=== PATIENT | female | born 1945 | race African-American/Black ===

== ENCOUNTER 2020-05-31 13:01 | Inpatient (IN) ==
[2020-05-31] MEDS ORDERED: hydrALAZINE 20 MG/1 ML VIAL IV PRN (15:06)
[2020-05-31] MEDS ORDERED: DEXTROSE 50% 25 GM/50 ML VIAL IV PRN (15:06)
[2020-05-31] MEDS ORDERED: ACETAMINOPHEN 325 MG TABLET PO PRN (15:06)
[2020-05-31] MEDS ORDERED: ONDANSETRON 4 MG/2 ML VIAL IV PRN (15:06)
[2020-05-31] MEDS ORDERED: GLUCAGON 1 MG VIAL IM PRN (15:06)
[2020-05-31] MEDS ORDERED: SODIUM CHLORIDE 0.9% 1,000 ML IV SCH (15:30)
[2020-05-31] MEDS: INSULIN LISPRO 100 UNIT/ML SUBCUT SCH ×2 (16:27→22:09)
[2020-05-31] MEDS: ENOXAPARIN 30 MG/0.3 ML SYRINGE SUBCUT SCH (16:48)
[2020-05-31] MEDS: INSULIN NPH/REGULAR 70/30 100 UNIT/ML SUBCUT SCH (16:49)
[2020-05-31] MEDS: ALBUMIN 25% 12.5 GM/50 ML VIAL IV SCH (17:39)
[2020-05-31] MEDS: cefTRIAXone 1,000 MG in SODIUM CHLORIDE 0.9% 100 ML IV SCH (22:06)
[2020-05-31 22:16] LABS: Basophils % 0.3 % (0.0-0.8); Eosinophils # 0.2 10*3/uL (0.0-0.87); Eosinophils % 2.1 % (0.00-10.9); Hematocrit 32.1 VOL% (35.7-47.0); Hemoglobin 9.7 GM/DL (12.0-16.0); Immature Granulocytes % 0.4 %; Immature Granulocytes Absolute 0.03 #; Lymphocytes # 0.8 10*3/uL (1.4-4.0); Lymphocytes % 10.1 % (21.3-54.2); Mean Corpuscular HGB Conc 30.2 GM/DL (32-36); Mean Corpuscular Volume 81.5 FL (87-102); Monocytes % 10.5 % (1.7-12.7); Neutrophils % 76.6 % (38.7-73.9); Platelet Count 212 T/CUMM (130-400); Red Blood Count 3.94 MC/CUMM (3.8-5.5); Red Cell Distribution Width 25.2 % (9.3-17.3); White Blood Count 7.6 T/CUMM (4-12)
[2020-05-31 22:41] LABS: Albumin 2.8 G/DL (3.4-5.0); Bilirubin,Total 0.6 MG/DL (0.2-1.0); Calcium 7.9 MG/DL (8.5-10.1); Osmolality,Calculated 301.2 MOS/KG (273-304); Total Protein 7.4 G/DL (6.4-8.2)
[2020-05-31 22:45] LABS: Potassium 6.5 MMOL/L (3.5-5.1)
[2020-05-31] MEDS ORDERED: SODIUM POLYSTYRENE SULFATE 15 GM/60 ML BOTTLE PO ONE (22:52)
[2020-05-31] MEDS ORDERED: CALCIUM GLUCONATE 1,000 MG in SODIUM CHLORIDE 0.9% 100 ML IV ONE (22:52)
[2020-05-31 22:53] LABS: Hypochromasia 1+; Platelet Estimate Normal
[2020-05-31] MEDS ORDERED: ALUMINUM/MAGNES/SIMETH MAX STR 30 ML UDCUP PO PRN (22:54)
[2020-06-01] MEDS: ALBUMIN 25% 12.5 GM/50 ML VIAL IV SCH ×2 (02:04→08:20)
[2020-06-01 06:00] LABS: Basophils % 0.5 % (0.0-0.8); Eosinophils # 0.2 10*3/uL (0.0-0.87); Eosinophils % 2.5 % (0.00-10.9); Hematocrit 27.2 VOL% (35.7-47.0); Hemoglobin 8.7 GM/DL (12.0-16.0); Immature Granulocytes % 0.3 %; Immature Granulocytes Absolute 0.02 #; Lymphocytes # 0.7 10*3/uL (1.4-4.0); Lymphocytes % 11.3 % (21.3-54.2); Mean Corpuscular Volume 76.4 FL (87-102); Monocytes % 11.2 % (1.7-12.7); Neutrophils % 74.2 % (38.7-73.9); Platelet Count 186 T/CUMM (130-400); Red Blood Count 3.56 MC/CUMM (3.8-5.5); Red Cell Distribution Width 23.9 % (9.3-17.3); White Blood Count 6.5 T/CUMM (4-12)
[2020-06-01 06:34] LABS: Calcium 8.1 MG/DL (8.5-10.1); Osmolality,Calculated 306.8 MOS/KG (273-304); Potassium 5.5 MMOL/L (3.5-5.1)
[2020-06-01 06:47] LABS: Hypochromasia 2+; Schistocytes Few
[2020-06-01 06:48] LABS: Burr Cells Few; Microcytosis 2+; Platelet Estimate Adequate; Polychromasia Few
[2020-06-01] MEDS: INSULIN LISPRO 100 UNIT/ML SUBCUT SCH ×4 (06:53→20:22)
[2020-06-01] MEDS: SODIUM CHLORIDE 0.9% 1,000 ML IV SCH (08:19)
[2020-06-01] MEDS: INSULIN NPH/REGULAR 70/30 100 UNIT/ML SUBCUT SCH ×2 (08:20→16:18)
[2020-06-01] MEDS: CALCIUM (CARBONATE)/VITAMIN D 600 MG-400 UNIT TABLET PO SCH (08:21)
[2020-06-01] MEDS: ATORVASTATIN 80 MG TABLET PO SCH (08:21)
[2020-06-01] MEDS: PANTOPRAZOLE 40 MG TABLET PO SCH (08:21)
[2020-06-01] MEDS: ASPIRIN EC 81 MG TABLET PO SCH (08:21)
[2020-06-01] MEDS: FLUoxetine 10 MG CAPSULE PO SCH (08:24)
[2020-06-01] MEDS: CLOPIDOGREL 75 MG TABLET PO SCH (08:24)
[2020-06-01] MEDS ORDERED: SODIUM POLYSTYRENE SULFATE 15 GM/60 ML BOTTLE PO STA (08:29)
[2020-06-01 09:26] LABS: Hepatitis B Core IgM Quant 0.08 Index; Hepatitis B Surface Ag Quant < 0.10 Index; Hepatitis B Surface Ag Result Non-Reactive (NonReactive); Hepatitis C Virus Ab Quant 0.13 Index; Hepatitis C Virus Ab Result Non-Reactive (NonReactive)
[2020-06-01 10:30] LABS: INR 1.1; PT Patient Result 12.1 SECS (9.8-11.9); Partial Thromboplastin Time 34.4 SECS (23.9-33.8)
[2020-06-01] MEDS: cefTRIAXone 1,000 MG in SODIUM CHLORIDE 0.9% 100 ML IV SCH (15:52)
[2020-06-01] MEDS: ENOXAPARIN 30 MG/0.3 ML SYRINGE SUBCUT SCH (15:52)
[2020-06-02 06:05] LABS: Basophils % 0.7 % (0.0-0.8); Eosinophils # 0.2 10*3/uL (0.0-0.87); Eosinophils % 2.5 % (0.00-10.9); Hematocrit 26.3 VOL% (35.7-47.0); Hemoglobin 8.6 GM/DL (12.0-16.0); Immature Granulocytes % 0.3 %; Immature Granulocytes Absolute 0.02 #; Lymphocytes # 0.9 10*3/uL (1.4-4.0); Lymphocytes % 15.1 % (21.3-54.2); Mean Corpuscular HGB Conc 32.7 GM/DL (32-36); Mean Corpuscular Volume 76.5 FL (87-102); Monocytes % 12.9 % (1.7-12.7); Neutrophils % 68.5 % (38.7-73.9); Platelet Count 175 T/CUMM (130-400); Red Blood Count 3.44 MC/CUMM (3.8-5.5); Red Cell Distribution Width 23.9 % (9.3-17.3); White Blood Count 5.9 T/CUMM (4-12)
[2020-06-02 06:39] LABS: Risk Ratio 2.05; VLDL CHOLESTEROL 5.8 MG/DL
[2020-06-02 06:40] LABS: Albumin 2.7 G/DL (3.4-5.0); Bilirubin,Total 0.7 MG/DL (0.2-1.0); Calcium 7.4 MG/DL (8.5-10.1); Osmolality,Calculated 297.7 MOS/KG (273-304); Potassium 4.7 MMOL/L (3.5-5.1)
[2020-06-02] MEDS: INSULIN LISPRO 100 UNIT/ML SUBCUT SCH ×4 (07:02→21:35)
[2020-06-02] MEDS: INSULIN NPH/REGULAR 70/30 100 UNIT/ML SUBCUT SCH ×2 (07:05→16:40)
[2020-06-02] MEDS: CLOPIDOGREL 75 MG TABLET PO SCH (08:02)
[2020-06-02] MEDS: ATORVASTATIN 80 MG TABLET PO SCH (08:02)
[2020-06-02] MEDS: PANTOPRAZOLE 40 MG TABLET PO SCH (08:02)
[2020-06-02] MEDS: ASPIRIN EC 81 MG TABLET PO SCH (08:02)
[2020-06-02] MEDS: CALCIUM (CARBONATE)/VITAMIN D 600 MG-400 UNIT TABLET PO SCH (08:02)
[2020-06-02] MEDS: FLUoxetine 10 MG CAPSULE PO SCH (08:02)
[2020-06-02] MEDS ORDERED: VANCOMYCIN INJ 750 MG in SODIUM CHLORIDE 0.9% 250 ML IV PRN (11:02)
[2020-06-02] MEDS ORDERED: VANCOMYCIN INJ 2,500 MG in SODIUM CHLORIDE 0.9% 500 ML IV ONE (12:00)
[2020-06-02] MEDS: ERTAPENEM 500 MG in SODIUM CHLORIDE 0.9% 100 ML IV SCH (12:37)
[2020-06-02] MEDS: ENOXAPARIN 30 MG/0.3 ML SYRINGE SUBCUT SCH (15:05)
[2020-06-03 05:46] LABS: Basophils % 0.4 % (0.0-0.8); Eosinophils # 0.2 10*3/uL (0.0-0.87); Eosinophils % 2.8 % (0.00-10.9); Hematocrit 28.4 VOL% (35.7-47.0); Hemoglobin 9.1 GM/DL (12.0-16.0); Immature Granulocytes % 0.3 %; Immature Granulocytes Absolute 0.02 #; Lymphocytes # 1.3 10*3/uL (1.4-4.0); Lymphocytes % 17.9 % (21.3-54.2); Monocytes % 11.5 % (1.7-12.7); Neutrophils % 67.1 % (38.7-73.9); Platelet Count 179 T/CUMM (130-400); Red Blood Count 3.69 MC/CUMM (3.8-5.5); Red Cell Distribution Width 24.4 % (9.3-17.3); White Blood Count 7.2 T/CUMM (4-12)
[2020-06-03 06:04] LABS: Burr Cells Few; Hypochromasia 1+; Microcytosis 1+
[2020-06-03 06:05] LABS: Platelet Estimate Normal; Target Cells Few
[2020-06-03 06:07] LABS: Albumin 2.7 G/DL (3.4-5.0); Bilirubin,Total 0.6 MG/DL (0.2-1.0); Calcium 7.5 MG/DL (8.5-10.1); Osmolality,Calculated 297.1 MOS/KG (273-304); Potassium 4.8 MMOL/L (3.5-5.1); Total Protein 7.1 G/DL (6.4-8.2)
[2020-06-03] MEDS: PANTOPRAZOLE 40 MG TABLET PO SCH (08:13)
[2020-06-03] MEDS: ATORVASTATIN 80 MG TABLET PO SCH (08:13)
[2020-06-03] MEDS: CALCIUM (CARBONATE)/VITAMIN D 600 MG-400 UNIT TABLET PO SCH (08:13)
[2020-06-03] MEDS: FLUoxetine 10 MG CAPSULE PO SCH (08:13)
[2020-06-03] MEDS: ASPIRIN EC 81 MG TABLET PO SCH (08:13)
[2020-06-03] MEDS: CLOPIDOGREL 75 MG TABLET PO SCH (08:13)
[2020-06-03] MEDS: INSULIN NPH/REGULAR 70/30 100 UNIT/ML SUBCUT SCH (08:14)
[2020-06-03] MEDS: SODIUM CHLORIDE 0.9% 1,000 ML IV SCH ×2 (08:28→08:29)
[2020-06-03] MEDS: INSULIN LISPRO 100 UNIT/ML SUBCUT SCH ×3 (10:29→16:58)
[2020-06-03] MEDS ORDERED: INSULIN NPH/REGULAR 70/30 100 UNIT/ML SUBCUT SCH (17:00)
[2020-06-03] MEDS: ERTAPENEM 500 MG in SODIUM CHLORIDE 0.9% 100 ML IV SCH (17:28)
[2020-06-04] MEDS: HEPARIN 5,000 UNIT/1 ML VIAL SUBCUT SCH ×2 (01:05→09:07)
[2020-06-04] MEDS: INSULIN LISPRO 100 UNIT/ML SUBCUT SCH ×5 (01:11→20:45)
[2020-06-04 05:36] LABS: Basophils % 0.5 % (0.0-0.8); Eosinophils # 0.3 10*3/uL (0.0-0.87); Eosinophils % 3.1 % (0.00-10.9); Hematocrit 30.5 VOL% (35.7-47.0); Hemoglobin 9.5 GM/DL (12.0-16.0); Immature Granulocytes % 0.4 %; Immature Granulocytes Absolute 0.03 #; Lymphocytes # 1.4 10*3/uL (1.4-4.0); Lymphocytes % 17.4 % (21.3-54.2); Mean Corpuscular HGB Conc 31.1 GM/DL (32-36); Mean Corpuscular Volume 78.6 FL (87-102); Monocytes % 12.4 % (1.7-12.7); Neutrophils % 66.2 % (38.7-73.9); Platelet Count 182 T/CUMM (130-400); Red Blood Count 3.88 MC/CUMM (3.8-5.5); Red Cell Distribution Width 24.5 % (9.3-17.3)
[2020-06-04 05:56] LABS: Hypochromasia Slight; Microcytosis 1+; Platelet Estimate Adequate
[2020-06-04 06:32] LABS: Osmolality,Calculated 286.7 MOS/KG (273-304); Potassium 4.4 MMOL/L (3.5-5.1)
[2020-06-04] MEDS ORDERED: INSULIN NPH/REGULAR 70/30 100 UNIT/ML SUBCUT SCH ×2 (08:00→17:00)
[2020-06-04] MEDS: CALCIUM (CARBONATE)/VITAMIN D 600 MG-400 UNIT TABLET PO SCH (09:06)
[2020-06-04] MEDS: ATORVASTATIN 80 MG TABLET PO SCH (09:06)
[2020-06-04] MEDS: PANTOPRAZOLE 40 MG TABLET PO SCH (09:06)
[2020-06-04] MEDS: ASPIRIN EC 81 MG TABLET PO SCH (09:06)
[2020-06-04] MEDS: FLUoxetine 10 MG CAPSULE PO SCH (09:06)
[2020-06-04] MEDS ORDERED: HEPARIN 10,000 UNIT/10 ML VIAL IV PRN (11:54)
[2020-06-04] MEDS: ERTAPENEM 500 MG in SODIUM CHLORIDE 0.9% 100 ML IV SCH (16:08)
[2020-06-04] MEDS: INSULIN GLARGINE 100 UNIT/ML SUBCUT SCH (20:46)
[2020-06-05 05:40] LABS: Basophils % 0.5 % (0.0-0.8); Eosinophils # 0.3 10*3/uL (0.0-0.87); Eosinophils % 2.9 % (0.00-10.9); Hematocrit 29.7 VOL% (35.7-47.0); Hemoglobin 9.5 GM/DL (12.0-16.0); Immature Granulocytes % 0.3 %; Immature Granulocytes Absolute 0.03 #; Lymphocytes # 1.3 10*3/uL (1.4-4.0); Lymphocytes % 14.4 % (21.3-54.2); Mean Corpuscular Volume 77.5 FL (87-102); Monocytes % 9.9 % (1.7-12.7); Platelet Count 166 T/CUMM (130-400); Red Blood Count 3.83 MC/CUMM (3.8-5.5); Red Cell Distribution Width 23.7 % (9.3-17.3); White Blood Count 8.7 T/CUMM (4-12)
[2020-06-05 05:52] LABS: Calcium 8.1 MG/DL (8.5-10.1); Potassium 4.6 MMOL/L (3.5-5.1)
[2020-06-05 06:02] LABS: Hypochromasia 1+; Microcytosis 1+; Platelet Estimate Adequate
[2020-06-05] MEDS ORDERED: BUPIVACAINE MPF 0.25% 30 ML VIAL ONE (07:02)
[2020-06-05] MEDS ORDERED: HEPARIN 5,000 UNIT/1 ML VIAL ONE (07:02)
[2020-06-05] MEDS ORDERED: LIDOCAINE 1%/EPI INJ 20 ML VIAL ONE (07:02)
[2020-06-05] MEDS ORDERED: MIDAZOLAM 2 MG/2 ML VIAL ONE (07:08)
[2020-06-05] MEDS ORDERED: fentaNYL 100 MCG/2 ML VIAL ONE (07:08)
[2020-06-05] MEDS ORDERED: propofoL 200 MG/20 ML VIAL IV ONE (07:08)
[2020-06-05] MEDS ORDERED: ETOMIDATE 40 MG/20 ML VIAL IV ONE (07:08)
[2020-06-05] MEDS ORDERED: DEXMEDETOMIDINE 200 MCG/2 ML VIAL ONE (07:08)
[2020-06-05] MEDS ORDERED: LIDOCAINE 2% 5 ML VIAL ONE (07:08)
[2020-06-05] MEDS ORDERED: SODIUM CHLORIDE 0.9% 250 ML IV SCH (07:30)
[2020-06-05] MEDS: INSULIN LISPRO 100 UNIT/ML SUBCUT SCH ×4 (07:44→22:43)
[2020-06-05] MEDS ORDERED: ONDANSETRON 4 MG/2 ML VIAL ONE (07:45)
[2020-06-05] MEDS ORDERED: DEXAMETHASONE 4 MG/1 ML VIAL ONE (07:45)
[2020-06-05] MEDS: FLUoxetine 10 MG CAPSULE PO SCH (09:25)
[2020-06-05] MEDS: ASPIRIN EC 81 MG TABLET PO SCH (09:25)
[2020-06-05] MEDS: CALCIUM (CARBONATE)/VITAMIN D 600 MG-400 UNIT TABLET PO SCH (09:25)
[2020-06-05] MEDS: PANTOPRAZOLE 40 MG TABLET PO SCH (09:25)
[2020-06-05] MEDS: ATORVASTATIN 80 MG TABLET PO SCH (09:25)
[2020-06-05] MEDS: INSULIN GLARGINE 100 UNIT/ML SUBCUT SCH (16:14)
[2020-06-05] MEDS ORDERED: MAGNESIUM HYDROXIDE SUSP 30 ML UDCUP PO ONE (16:30)
[2020-06-06] MEDS: FLUoxetine 10 MG CAPSULE PO SCH (08:27)
[2020-06-06] MEDS: ASPIRIN EC 81 MG TABLET PO SCH (08:27)
[2020-06-06] MEDS: ATORVASTATIN 80 MG TABLET PO SCH (08:27)
[2020-06-06] MEDS: INSULIN LISPRO 100 UNIT/ML SUBCUT SCH ×4 (08:27→21:51)
[2020-06-06] MEDS: HEPARIN 5,000 UNIT/1 ML VIAL SUBCUT SCH ×2 (08:27→21:51)
[2020-06-06] MEDS: PANTOPRAZOLE 40 MG TABLET PO SCH (08:28)
[2020-06-06] MEDS: CALCIUM (CARBONATE)/VITAMIN D 600 MG-400 UNIT TABLET PO SCH (08:28)
[2020-06-06] MEDS ORDERED: INSULIN GLARGINE 100 UNIT/ML SUBCUT SCH (21:00)
[2020-06-07 05:25] LABS: Basophils # 0.1 10*3/uL (0.0-0.2); Basophils % 0.5 % (0.0-0.8); Eosinophils # 0.3 10*3/uL (0.0-0.87); Eosinophils % 2.8 % (0.00-10.9); Hematocrit 29.8 VOL% (35.7-47.0); Hemoglobin 9.3 GM/DL (12.0-16.0); Immature Granulocytes % 1.4 %; Immature Granulocytes Absolute 0.14 #; Lymphocytes # 1.4 10*3/uL (1.4-4.0); Lymphocytes % 13.4 % (21.3-54.2); Mean Corpuscular HGB Conc 31.2 GM/DL (32-36); Mean Corpuscular Volume 80.3 FL (87-102); Monocytes % 7.6 % (1.7-12.7); Neutrophils % 74.3 % (38.7-73.9); Platelet Count 189 T/CUMM (130-400); Red Blood Count 3.71 MC/CUMM (3.8-5.5); Red Cell Distribution Width 23.7 % (9.3-17.3); White Blood Count 10.3 T/CUMM (4-12)
[2020-06-07 05:46] LABS: Burr Cells Slight; Hypochromasia 1+; Microcytosis 1+; Ovalocytes Slight; Platelet Estimate Adequate
[2020-06-07 06:04] LABS: Calcium 8.1 MG/DL (8.5-10.1)
[2020-06-07] MEDS: INSULIN LISPRO 100 UNIT/ML SUBCUT SCH (07:09)
[2020-06-07 07:36] VITALS: BP 158/84
[2020-06-07] MEDS: ASPIRIN EC 81 MG TABLET PO SCH (08:47)
[2020-06-07] MEDS: PANTOPRAZOLE 40 MG TABLET PO SCH (08:47)
[2020-06-07] MEDS: ATORVASTATIN 80 MG TABLET PO SCH (08:47)
[2020-06-07] MEDS: FLUoxetine 10 MG CAPSULE PO SCH (08:47)
[2020-06-07] MEDS: CALCIUM (CARBONATE)/VITAMIN D 600 MG-400 UNIT TABLET PO SCH (08:48)
[2020-06-07] MEDS: HEPARIN 5,000 UNIT/1 ML VIAL SUBCUT SCH (08:48)
== END 2020-06-07 10:41 | disposition home health service (06) | DRG 673 ==
LOC: SUATTDRO 14:46 → N.5E 14:46
PROVIDERS: ADMIT Internal Medicine; ATTEND Family Medicine

== ENCOUNTER 2020-07-07 15:18 | Observation (INO) ==
[2020-07-07 15:49] LABS: Basophils % 0.3 % (0.0-0.8); Eosinophils # 0.1 10*3/uL (0.0-0.87); Eosinophils % 0.7 % (0.00-10.9); Hematocrit 35.1 VOL% (35.7-47.0); Immature Granulocytes % 0.6 %; Immature Granulocytes Absolute 0.05 #; Lymphocytes # 0.6 10*3/uL (1.4-4.0); Lymphocytes % 6.7 % (21.3-54.2); Mean Corpuscular HGB Conc 31.3 GM/DL (32-36); Mean Corpuscular Volume 84.2 FL (87-102); Monocytes % 4.7 % (1.7-12.7); Platelet Count 233 T/CUMM (130-400); Red Blood Count 4.17 MC/CUMM (3.8-5.5)
[2020-07-07 16:13] LABS: Albumin 3.3 G/DL (3.4-5.0); Bilirubin,Total 0.8 MG/DL (0.2-1.0); Calcium 9.1 MG/DL (8.5-10.1); Osmolality,Calculated 279.2 MOS/KG (273-304); Potassium 2.9 MMOL/L (3.5-5.1); Total Protein 8.2 G/DL (6.4-8.2)
[2020-07-07] MEDS ORDERED: hydrALAZINE 20 MG/1 ML VIAL ONE (17:45)
[2020-07-07] MEDS ORDERED: POTASSIUM CHLORIDE 20 MEQ TABLET PO STA (17:48)
[2020-07-07] MEDS ORDERED: hydrALAZINE 20 MG/1 ML VIAL IV STA (17:50)
[2020-07-07] MEDS ORDERED: MORPHINE 4 MG/1 ML VIAL IV STA (18:58)
[2020-07-07] MEDS ORDERED: ONDANSETRON 4 MG/2 ML VIAL IV PRN (19:07)
[2020-07-07] MEDS ORDERED: GLUCAGON 1 MG VIAL IM PRN (19:07)
[2020-07-07] MEDS ORDERED: DEXTROSE 50% 25 GM/50 ML VIAL IV PRN (19:07)
[2020-07-07] MEDS ORDERED: hydrALAZINE 20 MG/1 ML VIAL IV PRN (19:07)
[2020-07-07] MEDS ORDERED: MAGNESIUM HYDROXIDE SUSP 30 ML UDCUP PO PRN (19:20)
[2020-07-07] MEDS ORDERED: POLYETHYLENE GLYCOL POWDER 17 GM PACK PO PRN (19:20)
[2020-07-07] MEDS ORDERED: POTASSIUM CHLORIDE RIDER 10 MEQ/100 ML PREMIX IV PRN (19:20)
[2020-07-07] MEDS: HEPARIN 5,000 UNIT/1 ML VIAL SUBCUT SCH (20:24)
[2020-07-07] MEDS: INSULIN LISPRO 100 UNIT/ML SUBCUT SCH (21:31)
[2020-07-07] MEDS: PANTOPRAZOLE 40 MG TABLET PO SCH (21:31)
[2020-07-08] MEDS: HEPARIN 5,000 UNIT/1 ML VIAL SUBCUT SCH ×2 (04:03→11:55)
[2020-07-08 05:48] LABS: Basophils % 0.4 % (0.0-0.8); Eosinophils # 0.2 10*3/uL (0.0-0.87); Eosinophils % 2.2 % (0.00-10.9); Hematocrit 31.7 VOL% (35.7-47.0); Hemoglobin 9.9 GM/DL (12.0-16.0); Immature Granulocytes % 0.4 %; Immature Granulocytes Absolute 0.03 #; Lymphocytes # 1.1 10*3/uL (1.4-4.0); Lymphocytes % 15.6 % (21.3-54.2); Mean Corpuscular HGB Conc 31.2 GM/DL (32-36); Monocytes % 6.2 % (1.7-12.7); Neutrophils % 75.2 % (38.7-73.9); Platelet Count 218 T/CUMM (130-400); Red Blood Count 3.73 MC/CUMM (3.8-5.5); White Blood Count 7.3 T/CUMM (4-12)
[2020-07-08 06:08] LABS: Hypochromasia 1+; Microcytosis 1+; Platelet Estimate Adequate
[2020-07-08 06:13] LABS: Alanine Aminotransferase < 9 U/L (13-56); Albumin 2.9 G/DL (3.4-5.0); Alkaline Phosphatase 102 U/L (45-117); Aspartate Amino Transferase 16 U/L (0-37); Blood Urea Nitrogen 19 MG/DL (7-18); Calcium 8.7 MG/DL (8.5-10.1); Carbon Dioxide 34 MMOL/L (21-32); Estimated Glom Filtration Rate 13 ML/MIN; Glucose 134 MG/DL (74-106); Osmolality,Calculated 276.8 MOS/KG (273-304); Potassium 3.7 MMOL/L (3.5-5.1); Sodium 137 MMOL/L (136-145); Total Protein 7.2 G/DL (6.4-8.2)
[2020-07-08] MEDS: INSULIN LISPRO 100 UNIT/ML SUBCUT SCH ×3 (08:38→17:10)
[2020-07-08] MEDS ORDERED: FLUoxetine 10 MG CAPSULE PO SCH (09:00)
[2020-07-08] MEDS ORDERED: INSULIN GLARGINE 100 UNIT/ML SUBCUT SCH (09:00)
[2020-07-08] MEDS ORDERED: CLOPIDOGREL 75 MG TABLET PO SCH (09:00)
[2020-07-08] MEDS ORDERED: ATORVASTATIN 80 MG TABLET PO SCH (09:00)
[2020-07-08] MEDS ORDERED: CALCIUM (CARBONATE)/VITAMIN D 600 MG-400 UNIT TABLET PO SCH (09:00)
[2020-07-08] MEDS ORDERED: ASPIRIN EC 81 MG TABLET PO SCH (09:00)
[2020-07-08] MEDS: PANTOPRAZOLE 40 MG TABLET PO SCH (10:23)
[2020-07-08] MEDS ORDERED: HEPARIN 10,000 UNIT/10 ML VIAL IV SCH (15:45)
[2020-07-08 17:11] VITALS: BP 133/84
== END 2020-07-08 18:00 | disposition home or self-care (01) ==
LOC: EDUNIT# → EDBD → N.EDINP 15:18 → N.ED 15:18 → N.TELEN 20:56
PROVIDERS: ADMIT Internal Medicine Geriatric Medicine; ATTEND Internal Medicine Geriatric Medicine